=== PATIENT | male | born 1970 | race African-American/Black ===

== ENCOUNTER 2018-03-06 13:46 | Outpatient (CLI) | payer OTHER ==
--- NOTE | 2018-03-06 16:08 | RAD ---
THORACIC SPINE FRONTAL AND LATERAL IMAGIN03/06/2018 HISTORY: Pain. COMPARISON: None. FINDINGS: The thoracic pedicles appear intact on frontal imaging. Lateral exam demonstrates normal vertebral b katlin height and alignment. No acute osseous abnormality. IMPRESSION: No acute findings. POS: [facility]
== END 2018-03-06 13:47 | disposition home or self-care (01) ==
LOC: NAV RAD 13:46
PROVIDERS: ATTEND Family Medicine
DX: Z02.71 Encounter for disability determination (principal); M54.9 Dorsalgia, unspecified
CPT/HCPCS: 72072